=== PATIENT | female | born 1985 | race Caucasian/White ===

== ENCOUNTER 2021-05-26 11:25 | Emergency (ER) | payer SELFPAY ==
[~2021-05-26] VITALS: Ht 175.3 cm; Wt 106.8 kg
[2021-05-26 11:34] VITALS: BP 107/69; TEMP 98.5
[2021-05-26 12:24] LABS: STREP SCREEN NEGATIVE
[2021-05-26 12:58] VITALS: PULSE 87
== END 2021-05-26 13:01 | disposition home or self-care (01) ==
LOC: COL.ER 11:25
PROVIDERS: Emergency Medicine
DX: J02.9 Acute pharyngitis, unspecified (principal); F17.210 Nicotine dependence, cigarettes, uncomplicated; Z20.822 Contact with and (suspected) exposure to COVID-19
CPT/HCPCS: J8540

== ENCOUNTER 2021-06-19 10:16 | Emergency (ER) | payer SELFPAY ==
[~2021-06-19] VITALS: Ht 175.3 cm; Wt 104.5 kg
[2021-06-19 10:24] VITALS: TEMP 98.9
[2021-06-19] MEDS ORDERED: DESYREL DIVIDO150 M1 PO (10:27)
[2021-06-19] MEDS ORDERED: KLONOPIN 0.5MG0.5 MG PO (10:27)
[2021-06-19] MEDS ORDERED: ALDACTONE 100M100 MG PO (10:27)
[2021-06-19] MEDS ORDERED: WELLBUTRIN SR100 M1 PO (10:27)
[2021-06-19] MEDS ORDERED: LAMICTAL200 MG PO (10:27)
[2021-06-19] MEDS ORDERED: DEPO-PROVER150 MG/M1 IM (10:28)
[2021-06-19] MEDS ORDERED: VISTARIL50 MG PO (10:28)
[2021-06-19] MEDS ORDERED: ZOLOFT 100MG100 MG PO (10:28)
[2021-06-19] MEDS ORDERED: TYLENOL W/COD1 UDTAB PO (10:28)
[2021-06-19 11:47] LABS: BASO # 0.1 K/mm3 (0.0-0.2); BASO % 0.4 % (0.0-2.0); EOS # 0.2 K/mm3 (0.0-0.7); EOS % 1.2 % (0.0-4.0); GRAN # 10.5 K/mm3 (1.4-6.5); GRAN % 72.3 % (42.2-75.2); HEMATOCRIT 39.1 % (37.0-47.0); HEMOGLOBIN 12.9 g/dl (12.5-16.0); LYMPH # 2.7 K/mm3 (1.2-3.4); LYMPH % 18.9 % (20.0-51.0); MEAN CELL VOLUME 85 fl (80.0-100.0); MEAN CORPUSCULAR HEMOGLOBIN 28 pg (27-31); MEAN CORPUSCULAR HGB CONC 33 g/dl (33.0-37.0); MEAN PLATELET VOLUME 10.4 fl (7.4-10.4); MONO % 6.8 % (1.7-9.3); PLATELET COUNT 346 K/mm3 (130-400); RED BLOOD COUNT 4.58 M/mm3 (4.10-5.30); REDCELL DISTRIBUTION WIDTH-CV 13.5 % (11.5-14.5)
[2021-06-19 12:00] LABS: ALBUMIN 3.8 gm/dL (3.5-5.0); BILIRUBIN,TOTAL 0.9 mg/dL (0.2-1.2); CALCIUM 9.1 mg/dL (8.4-10.2); CREATININE, serum 0.77 mg/dL (0.57-1.11); POTASSIUM 4.1 mmol/L (3.5-4.5); TOTAL PROTEIN 7.7 gm/dL (6.2-8.1)
[2021-06-19] MEDS ORDERED: PERCOCET 325 MG1 TA2 PO (13:33)
[2021-06-19] MEDS ORDERED: AMOXICILLIN 8751 TAB PO (13:33)
[2021-06-19 14:30] VITALS: BP 112/72; PULSE 76
== END 2021-06-19 14:37 | disposition home or self-care (01) ==
LOC: COL.ER 10:16
PROVIDERS: Emergency Medicine
DX: H60.91 Unspecified otitis externa, right ear (principal); H66.91 Otitis media, unspecified, right ear; F41.9 Anxiety disorder, unspecified; F17.210 Nicotine dependence, cigarettes, uncomplicated; Z79.899 Other long term (current) drug therapy
CPT/HCPCS: Q9967

== ENCOUNTER 2021-10-08 18:33 | Emergency (ER) | payer SELFPAY ==
[~2021-10-08] VITALS: Ht 175.3 cm; Wt 63.6 kg
[~2021-10-08 18:33] MED LIST: ALDACTONE 100M100 MG PO; AMOXICILLIN 8751 TAB PO; DEPO-PROVER150 MG/M1 IM; DESYREL DIVIDO150 M1 PO; KLONOPIN 0.5MG0.5 MG PO; LAMICTAL200 MG PO; PERCOCET 325 MG1 TA2 PO; TYLENOL W/COD1 UDTAB PO; VISTARIL50 MG PO; WELLBUTRIN SR100 M1 PO; ZOLOFT 100MG100 MG PO
[2021-10-08 19:04] LABS: BASO # 0.1 K/mm3 (0.0-0.2); BASO % 0.4 % (0.0-2.0); EOS # 0.1 K/mm3 (0.0-0.7); EOS % 0.9 % (0.0-4.0); GRAN # 6.8 K/mm3 (1.4-6.5); HEMATOCRIT 39.3 % (37.0-47.0); HEMOGLOBIN 13.6 g/dl (12.5-16.0); LYMPH # 3.8 K/mm3 (1.2-3.4); LYMPH % 33.2 % (20.0-51.0); MEAN CELL VOLUME 82 fl (80.0-100.0); MEAN CORPUSCULAR HEMOGLOBIN 28 pg (27-31); MEAN CORPUSCULAR HGB CONC 35 g/dl (33.0-37.0); MEAN PLATELET VOLUME 9.9 fl (7.4-10.4); MONO # 0.6 K/mm3 (0.1-0.6); MONO % 4.9 % (1.7-9.3); PLATELET COUNT 328 K/mm3 (130-400); RED BLOOD COUNT 4.81 M/mm3 (4.10-5.30); REDCELL DISTRIBUTION WIDTH-CV 13.2 % (11.5-14.5)
[2021-10-08 19:15] LABS: COLLECTION METHOD IN
[2021-10-08 19:20] LABS: MUCOUS Present (NOT PRESENT); PH 5 (5-8); SQUAMOUS EPITHELIAL 0-2 /hpf (0-10); URINE APPEARANCE Hazy (CLEAR/HAZY); URINE BACTERIA None Seen /hpf (NONE SEEN); URINE BILIRUBIN Negative (NEGATIVE); URINE BLOOD Negative (NEGATIVE); URINE COLOR Yellow (YELLOW); URINE GLUCOSE Negative (NEGATIVE); URINE KETONE Negative (NEGATIVE); URINE LEUKOCYTE ESTERASE Negative (NEGATIVE); URINE NITRATE Negative (NEGATIVE); URINE PROTEIN(semi-quant) Negative (NEGATIVE); URINE RBC 0-2 /hpf (0-2); URINE UROBILINOGEN Negative (NEGATIVE)
[2021-10-08 19:24] LABS: ALANINE AMINOTRANSFERASE 7 U/L (0-55); ALBUMIN 4.4 gm/dL (3.5-5.0); ALKALINE PHOSPHATASE 94 U/L (40-150); ANION GAP 13 mmol/L (7-16); AST,SGOT 12 U/L (5-34); BILIRUBIN,TOTAL 0.3 mg/dL (0.2-1.2); BLOOD UREA NITROGEN 9 mg/dL (7-19); CARBON DIOXIDE 21 mmol/L (22-29); CHLORIDE 105 mmol/L (98-107); GLUCOSE 104 mg/dL (70-99); POTASSIUM 3.5 mmol/L (3.5-4.5); SODIUM 139 mmol/L (136-145); TOTAL PROTEIN 7.9 gm/dL (6.2-8.1)
[2021-10-08 19:31] LABS: TRICYCLIC ANTIDEPRESS URINE NEGATIVE
[2021-10-08 19:32] LABS: ACETAMINOPHEN < 1.0 ug/mL (10-30); ALCOHOL(ethanol),MEDICAL < 10 mg/dL (0-10); SALICYLATE < 5.0 mg/dL (15.0-30.0)
[2021-10-09 03:30] VITALS: TEMP 98.6
[2021-10-09 05:00] VITALS: BP 101/56; PULSE 62
== END 2021-10-09 05:00 | disposition home or self-care (01) ==
LOC: COL.ER 18:33
PROVIDERS: Physician Assistant
DX: T43.212A Poisoning by selective serotonin and norepinephrine reuptake inhibitors, intentional self-harm, initial encounter (principal); Z20.822 Contact with and (suspected) exposure to COVID-19; Z86.59 Personal history of other mental and behavioral disorders